=== PATIENT | female | born 1960 | race African-American/Black ===

== ENCOUNTER 2017-04-11 12:21 | Inpatient (IN) | payer MEDICARE, OTHER ==
[~2017-04-11] VITALS: Ht 170.2 cm; Wt 89.3 kg
[2017-04-11] MEDS ORDERED: SODIUM CHLORIDE 0.9% 1,000 ML IV ONE ×2 (12:39)
[2017-04-11 13:28] LABS: Basophils # (auto) 0 uL; Basophils % (auto) 0.4 % (0.0-2.0); Eosinophils # (auto) 0.1 uL; Eosinophils % (auto) 2.1 % (0.0-7.0); Hemoglobin 13.8 g/dL (12.2-16.2); Lymphocytes # (auto) 1.7 uL; Lymphocytes % (auto) 23.5 % (10.0-50.0); Mean Corpuscular Hemoglobin 30.8 pg (28.0-32.0); Mean Corpuscular Hgb Conc. 33.6 g/dL (32.0-36.0); Mean Corpuscular Volume 91.5 fL (80.0-100.0); Monocytes # (auto) 1.2 uL; Neutrophils # (auto) 4.1 uL; Nucleated Red Blood Cells % 0.1 %; Platelet Count (auto) 290 10^3/uL (140-450); Red Blood Cells 4.48 10^6/uL (4.0-5.20); White Blood Cell 7.2 10^3/uL (4.4-10.8)
[2017-04-11 13:34] LABS: Partial Thromboplastin Time 21.2 sec (22.64-33.71); Prothrombin Time 10.9 sec (9.37-12.3)
[2017-04-11 13:35] LABS: Alanine Aminotransferase 28 U/L (13-56); Albumin 3.6 g/dL (3.4-5.0); Anion Gap 10 (5-15); Aspartate Aminotransferase 37 U/L (15-37); BUN/Creatinine Ratio 8.9; Blood Urea Nitrogen 8 mg/dL (7-18); Calcium 9.2 mg/dL (8.5-10.1); Carbon Dioxide 26 mmol/L (21-32); Chloride 103 mmol/L (98-107); GFR African American 83 mL/min; GFR Non-African American 69 mL/min; Glucose 92 mg/dL (74-106); Sodium 139 mmol/L (136-145)
[2017-04-11 13:36] LABS: Lactic Acid w/Reflex 2.9 mmol/L (0.4-2.0)
[2017-04-11 13:39] LABS: Alkaline Phosphatase 116 U/L (45-117); Bilirubin, Total 0.3 mg/dL (0.2-1.0); Total Protein 8.3 g/dL (6.4-8.2)
[2017-04-11] MEDS ORDERED: PROMETHAZINE HCL 25 MG/ML 1ML IV ONE (13:45)
[2017-04-11] MEDS ORDERED: NALBUPHINE HCL 10 MG/1ml INJECTION IV ONE (13:45)
[2017-04-11] MEDS ORDERED: TEMAZEPAM 15 MG CAP PO PRN (14:30)
[2017-04-11] MEDS ORDERED: HYDROcodone-ACET 5/325MG TAB PO PRN (14:30)
[2017-04-11] MEDS ORDERED: ALBUTEROL SULF 2.5 MG/0.5ML(0.5%) NEB SOLN NEB PRN (14:30)
[2017-04-11] MEDS ORDERED: MORPHINE SULFATE 4 MG/ML SYR/VIAL IV PRN ×2 (14:30)
[2017-04-11] MEDS ORDERED: ACETAMINOPHEN 500 MG TAB PO PRN (14:30)
[2017-04-11] MEDS ORDERED: PROMETHAZINE HCL 25 MG/ML 1ML IV PRN (14:30)
[2017-04-11] MEDS ORDERED: VANCOMYCIN 1GM/250ML 250 ML IV ONE (14:30)
[2017-04-11] MEDS ORDERED: OSELTAMIVIR 75 MG CAP PO ONE (14:30)
[2017-04-11] MEDS ORDERED: NITROGLYCERIN 0.4 MG SL TAB SL PRN (14:30)
[2017-04-11] MEDS ORDERED: LORazepam 0.5 MG TAB PO PRN (14:30)
[2017-04-11] MEDS ORDERED: LACTULOSE 20Gm/30ML SOLN PO PRN (14:30)
[2017-04-11] MEDS ORDERED: methylPREDNISolone SOD SUCC 125 MG/2 ML VL IV ONE (15:00)
[2017-04-11] MEDS: SODIUM CHLORIDE 0.9% 1,000 ML IV SCH (15:15)
[2017-04-11 16:52] VITALS: BP 147/80
[2017-04-11] MEDS: CLINDAMYCIN 600MG IV 50 ML IV SCH ×2 (17:01→23:46)
[2017-04-11] MEDS: LEVOFLOXACIN 500MG 100 ML IV SCH (17:02)
[2017-04-11 17:28] VITALS: BP 147/80
[2017-04-11] MEDS: IPRATROPIUM BROM 0.5 MG/2.5ML INH SOL NEB SCH (19:12)
[2017-04-11] MEDS: ALBUTEROL SULF 2.5 MG/0.5ML(0.5%) NEB SOLN NEB SCH (19:12)
[2017-04-11 22:00] VITALS: BP 118/60
[2017-04-11] MEDS ORDERED: OSELTAMIVIR 75 MG CAP PO SCH (22:00)
[2017-04-11] MEDS: methylPREDNISolone SOD SUCC 40 MG/ML VL IV SCH (22:04)
[2017-04-12] MEDS: ALBUTEROL SULF 2.5 MG/0.5ML(0.5%) NEB SOLN NEB SCH ×4 (00:49→19:08)
[2017-04-12] MEDS: IPRATROPIUM BROM 0.5 MG/2.5ML INH SOL NEB SCH ×4 (00:49→19:08)
[2017-04-12 01:54] VITALS: BP 118/60
[2017-04-12 05:30] VITALS: BP 132/76
[2017-04-12] MEDS: SODIUM CHLORIDE 0.9% 1,000 ML IV SCH ×2 (06:12→15:54)
[2017-04-12 07:06] LABS: Basophils # (auto) 0 uL; Basophils % (auto) 0.1 % (0.0-2.0); Eosinophils # (auto) 0 uL; Hematocrit 38.8 % (36.0-46.0); Lymphocytes # (auto) 1.9 uL; Lymphocytes % (auto) 38.5 % (10.0-50.0); Mean Corpuscular Hemoglobin 30.8 pg (28.0-32.0); Mean Corpuscular Hgb Conc. 33.6 g/dL (32.0-36.0); Mean Corpuscular Volume 91.7 fL (80.0-100.0); Monocytes # (auto) 0.1 uL; Monocytes % (auto) 2.4 % (0.0-12.0); Neutrophils # (auto) 2.9 uL; Platelet Count (auto) 283 10^3/uL (140-450); Red Blood Cells 4.23 10^6/uL (4.0-5.20); Red Cell Distribution Width 12.9 % (11.8-14.3)
[2017-04-12 07:29] LABS: Cholesterol 139 mg/dL (< 200); HDL Cholesterol 54 mg/dL (40-59); LDL Cholesterol 89 mg/dL (< 100); Triglycerides 42 mg/dL (< 150)
[2017-04-12 08:00] VITALS: BP 122/69
[2017-04-12] MEDS: CLINDAMYCIN 600MG IV 50 ML IV SCH ×2 (08:02→15:54)
[2017-04-12 08:50] VITALS: BP 122/69
[2017-04-12] MEDS: methylPREDNISolone SOD SUCC 40 MG/ML VL IV SCH (10:25)
[2017-04-12] MEDS: LEVOFLOXACIN 500MG 100 ML IV SCH (10:25)
[2017-04-12 13:00] VITALS: BP 126/94
[2017-04-12 17:00] VITALS: BP 142/81
== END 2017-04-12 19:15 | disposition left against medical advice (07) | DRG 871 ==
LOC: ER 12:21 → TELE 12:22 → TELE-WESTW 15:30
PROVIDERS: ADMIT Internal Medicine; ATTEND Internal Medicine
DX: A41.9 Sepsis, unspecified organism (principal); J18.9 Pneumonia, unspecified organism; D86.9 Sarcoidosis, unspecified; Z88.5 Allergy status to narcotic agent; Z88.0 Allergy status to penicillin; R06.03 Acute respiratory distress
CPT/HCPCS: 36415; 71045; 71250; 80053; 80061; 83605; 84484; 85025; 85610; 85730; 87040; 87400; 94640; 96361; 96365; 96375; J1956; J3490

== ENCOUNTER 2019-08-13 12:17 | Inpatient (IN) | payer MEDICARE, OTHER ==
[~2019-08-13] VITALS: Ht 170.2 cm; Wt 86.2 kg
[2019-08-13] MEDS ORDERED: SODIUM CHLORIDE 0.9% 1,000 ML IV ONE ×2 (12:18)
[2019-08-13] MEDS ORDERED: AZITHROMYCIN 500MG/ 250ML 250 ML IV ONE (12:30)
[2019-08-13] MEDS ORDERED: ZINC SULFATE 220mg CAP or TAB PO ONE (12:30)
[2019-08-13] MEDS ORDERED: cefTRIAXone 1GM/50ML D5W 50 ML IV ONE (12:30)
[2019-08-13] MEDS ORDERED: ASCORBIC ACID 500 MG TAB PO ONE (13:15)
[2019-08-13 13:44] LABS: Basophils # (auto) 0 10 ^3/uL (0-0.2); Basophils % (auto) 0.3 % (0.0-2.0); Eosinophils # (auto) 0 10 ^3/uL (0-0.8); Eosinophils % (auto) 0.1 % (0.0-7.0); Hematocrit 44.2 % (36.0-46.0); Hemoglobin 14.8 g/dL (12.2-16.2); Lymphocytes # (auto) 1.5 10 ^3/uL (0.4-5.4); Lymphocytes % (auto) 9.4 % (10.0-50.0); Mean Corpuscular Hemoglobin 31.2 pg (28.0-32.0); Mean Corpuscular Hgb Conc. 33.6 g/dL (32.0-36.0); Mean Corpuscular Volume 93.1 fL (80.0-100.0); Monocytes # (auto) 1.2 10 ^3/uL (0-1.3); Monocytes % (auto) 7.7 % (0.0-12.0); Neutrophils # (auto) 12.9 10 ^3/uL (1.6-8.6); Neutrophils % (auto) 82.5 % (37.0-80.0); Platelet Count (auto) 307 10^3/uL (140-450); Red Blood Cells 4.75 10^6/uL (4.0-5.20); Red Cell Distribution Width 13.2 % (11.8-14.3); White Blood Cell 15.6 10^3/uL (4.4-10.8)
[2019-08-13] MEDS ORDERED: ACETAMINOPHEN 500 MG TAB PO ONE (13:45)
[2019-08-13 13:49] VITALS: BP 152/85
[2019-08-13 13:55] LABS: Calcium 8.4 mg/dL (8.5-10.1); Chloride 104 mmol/L (98-107); Potassium 3.7 mmol/L (3.5-5.1); Sodium 134 mmol/L (136-145)
[2019-08-13 13:56] LABS: INR 1.07 (0.9-1.15); Partial Thromboplastin Time 28.2 sec (23.64-32.05)
[2019-08-13 14:03] LABS: Alanine Aminotransferase 51 U/L (13-56); Alkaline Phosphatase 164 U/L (45-117); Anion Gap 5 (5-15); Aspartate Aminotransferase 54 U/L (15-37); BUN/Creatinine Ratio 9.3; Bilirubin, Total 0.7 mg/dL (0.2-1.0); Blood Urea Nitrogen 10 mg/dL (7-18); Carbon Dioxide 25 mmol/L (21-32); GFR African American 68 mL/min; GFR Non-African American 56 mL/min; Glucose 107 mg/dL (74-106); Lactate Dehydrogenase 283 U/L (84-246); Total Protein 7.6 g/dL (6.4-8.2)
[2019-08-13] MEDS ORDERED: levoFLOXacin 500MG 100 ML IV ONE (14:30)
[2019-08-13] MEDS ORDERED: ACETAMINOPHEN 500 MG TAB PO PRN (14:30)
[2019-08-13] MEDS ORDERED: methylPREDNISolone SOD SUCC 40 MG/ML VL IV SCH (14:30)
[2019-08-13] MEDS ORDERED: TEMAZEPAM 15 MG CAP PO PRN (14:30)
[2019-08-13] MEDS ORDERED: LACTULOSE 20Gm/30ML SOLN PO PRN (14:30)
[2019-08-13] MEDS ORDERED: NITROGLYCERIN 0.4 MG SL TAB SL PRN (14:30)
[2019-08-13] MEDS ORDERED: PROMETHAZINE HCL 25 MG/ML 1ML IV PRN (14:30)
[2019-08-13] MEDS ORDERED: traMADol HCL 50 MG TAB PO PRN (14:30)
[2019-08-13] MEDS ORDERED: MORPHINE SULF INJ 2 MG/ML SYRINGE 1ML IV PRN (14:30)
[2019-08-13] MEDS ORDERED: ALBUTEROL SULF HFA 90MCG INH 200DOSE IN SCH (22:00)
[2019-08-13] MEDS ORDERED: FAMOTIDINE 20 MG TAB PO SCH (22:00)
[2019-08-13] MEDS ORDERED: CLINDAMYCIN 600MG IV 50 ML IV SCH (22:00)
[2019-08-14] MEDS ORDERED: ZINC SULFATE 220mg CAP or TAB PO SCH (10:00)
[2019-08-14] MEDS ORDERED: levoFLOXacin 500MG 100 ML IV SCH (10:00)
[2019-08-14] MEDS ORDERED: ASCORBIC ACID 1,000 MG TAB PO SCH (10:00)
[2019-08-14] MEDS ORDERED: ENOXAPARIN SOD 40 MG/0.4 ML SYRINGE SC SCH ×2 (10:00)
[2019-08-14] MEDS ORDERED: CHOLECALCIFEROL (VITD3) 1,000IU=25mCg TAB PO SCH (10:00)
== END 2019-08-13 19:00 | disposition left against medical advice (07) | DRG 196 ==
LOC: EDBD 12:17 → ER 12:17 → TELE 12:18
PROVIDERS: ADMIT Internal Medicine; ATTEND Internal Medicine
DX: D86.9 Sarcoidosis, unspecified (principal); J18.9 Pneumonia, unspecified organism; Z20.828 Contact with and (suspected) exposure to other viral communicable diseases; Z53.29 Procedure and treatment not carried out because of patient's decision for other reasons; Z88.5 Allergy status to narcotic agent; Z88.0 Allergy status to penicillin
CPT/HCPCS: 36415; 71045; 80053; 82728; 83605; 83615; 83735; 83880; 84484; 85025; 85610; 85730; 87040; 87070; 87804; 87880; G0378; J0696

== ENCOUNTER 2023-05-04 02:50 | Inpatient (IN) | payer MEDICARE, BC ==
[~2023-05-04] VITALS: Ht 170.2 cm; Wt 63.7 kg
[2023-05-04] VITALS (7 sets, daily range): BP systolic 125–141; BP diastolic 72–94; PULSE 87–112; RESP 18–55; TEMP 97.2; O2SAT 90–99
[2023-05-04 06:58] LABS: Hemoglobin 12.3 g/dL (12.2-16.2)
[2023-05-04 07:00] LABS: Hematocrit 37.3 % (36.0-46.0); Mean Corpuscular Hemoglobin 30.6 pg (28.0-32.0); Mean Corpuscular Hgb Conc. 32.9 g/dL (32.0-36.0); Mean Corpuscular Volume 92.9 fL (80.0-100.0); Red Blood Cells 4.02 10^6/uL (4.0-5.20); Red Cell Distribution Width 14.2 % (11.8-14.3)
[2023-05-04 07:03] LABS: White Blood Cell 37.7 10^3/uL (4.4-10.8)
[2023-05-04 07:05] LABS: Basophils % (manual) 0 (0.0-2.0); Blast Cells 0; Eosinophils % (manual) 0 (0-7); Metamyelocytes % 0; Myelocytes % 0; Promyelocytes % 0; Reactive Lymphocytes 0
[2023-05-04 07:17] LABS: Alanine Aminotransferase 38 U/L (7-40); Albumin 3.2 g/dL (3.2-4.8); Alkaline Phosphatase 248 U/L (46-116); Anion Gap 8 (5-15); Aspartate Aminotransferase 84 U/L (13-40); BUN/Creatinine Ratio 20.3 (10.0-20.0); Bilirubin, Total 0.4 mg/dL (0.2-1.0); Blood Urea Nitrogen 13 mg/dL (9-23); Calcium 9.5 mg/dL (8.5-10.1); Carbon Dioxide 25 mmol/L (20-30); Chloride 105 mmol/L (98-107); Glucose 65 mg/dL (74-106); Potassium 5.1 mmol/L (3.5-5.1); Sodium 138 mmol/L (136-145); Total Protein 7.8 g/dL (5.7-8.2)
[2023-05-04 08:13] LABS: Band Neutrophils % (manual) 5; Lymphocytes % (manual) 9 (10.0-50.0); Monocytes % (manual) 5 (0-12); Platelet Estimate Increased; RBC Morphology Normal
[2023-05-04 08:23] LABS: INR 1.14 (0.9-1.15); Prothrombin Time 11.9 sec (9.3-11.8)
[2023-05-04 08:33] LABS: Base Excess -4.6 mmol/L (-2.0-2.0)
[2023-05-04] MEDS: ASPirin-EC 325mg tab PO ONE (08:43)
[2023-05-04] MEDS: ENOXAPARIN SOD 80 MG/0.8ML SYRINGE SC ONE (08:43)
[2023-05-04] MEDS: levoFLOXacin 750MG 150 ML IV ONE (09:07)
[2023-05-04] MEDS: ALBUTEROL SULF 2.5 MG/0.5ML(0.5%) NEB SOLN NEB ONE (09:44)
[2023-05-04] MEDS: IPRATROPIUM BROM 0.5 MG/2.5ML INH SOL NEB ONE (09:44)
[2023-05-04 09:56] LABS: Urine Bacteria FEW /hpf (None Seen); Urine Blood 2+ /uL (Negative); Urine Clarity HAZY (Clear); Urine Color Yellow (Yellow); Urine Hyaline Cast FEW /lpf (0 - 2); Urine Mucus FEW (None Seen); Urine Protein, UAD 1+ (Negative); Urine Specific Gravity 1.015 (1.001-1.035); Urine Urobilinogen Normal (Negative); Urine WBC 17 /hpf (0 - 5)
[2023-05-04 10:30] LABS: COVID19 ANTIGEN SOFIA FIA NEGATIVE (NEGATIVE); Rapid Influenza A Negative (Negative); Rapid Influenza B Negative (Negative)
[2023-05-04] MEDS ORDERED: ONDANSETRON HCL 4 MG/2 ML VIAL IV PRN (11:15)
[2023-05-04] MEDS ORDERED: VANCOMYCIN PER PHARMACY 0 MG IV SCH (11:15)
[2023-05-04] MEDS ORDERED: HYDROmorphone HCL 2 MG/ML VL/or syr IV PRN (11:15)
[2023-05-04] MEDS: VANCOMYCIN 1GM/200ML 200 ML IV ONE (11:48)
[2023-05-04] MEDS: methylPREDNISolone SOD SUCC 125 MG/2 ML VL IV SCH (11:48)
[2023-05-04] MEDS: FUROSEMIDE 40 MG/4 ML VIAL IV SCH (11:48)
[2023-05-04] MEDS: HYDROcodone-ACET 5/325MG TAB PO PRN (11:57)
[2023-05-04] MEDS: IPRATROPIUM BROM 0.5 MG/2.5ML INH SOL NEB SCH (12:06)
[2023-05-04] MEDS: ALBUTEROL SULF 2.5 MG/0.5ML(0.5%) NEB SOLN NEB SCH (12:06)
[2023-05-04 12:09] LABS: Lactic Acid w/Reflex 4.7 mmol/L (0.4-2.0)
[2023-05-04] MEDS: LACTATED RINGER'S 500 ML IV ONE ×2 (12:18→15:51)
[2023-05-04] MEDS: SODIUM CHLOR 0.9% PF (SALINE LOCK) 10ML VIAL/SYR IV SCH (14:12)
[2023-05-04] MEDS: IOHEXOL 350 MG/ML 100ML IJ ONE (14:23)
[2023-05-04] MEDS: AZTREONAM 1GM INJ 1 GM in D5W 5% 50 ML IV SCH (14:48)
[2023-05-04] MEDS: MORPHINE SULFATE INJ 2 MG/ml SYRG IV ONE (15:45)
[2023-05-04 16:21] LABS: Hemoglobin 11.3 g/dL (12.2-16.2); Mean Corpuscular Volume 92.1 fL (80.0-100.0)
[2023-05-04 16:22] LABS: Base Excess -6.4 mmol/L (-2.0-2.0)
[2023-05-04 16:22] LABS: Hematocrit 34.2 % (36.0-46.0); Mean Corpuscular Hemoglobin 30.4 pg (28.0-32.0); Red Blood Cells 3.71 10^6/uL (4.0-5.20); Red Cell Distribution Width 14.3 % (11.8-14.3)
[2023-05-04 16:27] LABS: White Blood Cell 34.9 10^3/uL (4.4-10.8)
[2023-05-04 16:28] LABS: Basophils % (manual) 0 (0.0-2.0); Blast Cells 0; Eosinophils % (manual) 0 (0-7); Metamyelocytes % 0; Myelocytes % 0; Promyelocytes % 0; Reactive Lymphocytes 0
[2023-05-04 16:33] LABS: Anion Gap 14 (5-15); Carbon Dioxide 16 mmol/L (20-30); Chloride 106 mmol/L (98-107); Potassium 4.3 mmol/L (3.5-5.1); Sodium 136 mmol/L (136-145)
[2023-05-04 16:34] LABS: Calcium 8.6 mg/dL (8.7-10.4)
[2023-05-04 16:39] LABS: BUN/Creatinine Ratio 27.3 (10.0-20.0); Blood Urea Nitrogen 18 mg/dL (9-23); Glucose 85 mg/dL (74-106)
[2023-05-04 16:48] LABS: Lactic Acid w/Reflex 4.9 mmol/L (0.4-2.0)
[2023-05-04 16:56] LABS: Band Neutrophils % (manual) 7; Lymphocytes % (manual) 4 (10.0-50.0); Monocytes % (manual) 4 (0-12)
[2023-05-04 16:57] LABS: Platelet Estimate Increased; RBC Morphology Normal
[2023-05-04 17:55] LABS: Basophils # (auto) 0 10 ^3/uL (0-0.2); Basophils % (auto) 0.1 % (0.0-2.0); Eosinophils # (auto) 0 10 ^3/uL (0-0.8); Lymphocytes % (auto) 2.9 % (10.0-50.0); Red Cell Distribution Width 14.4 % (11.8-14.3)
[2023-05-04 17:56] LABS: Eosinophils % (auto) 0.1 % (0.0-7.0); Hemoglobin 10.9 g/dL (12.2-16.2); Mean Corpuscular Hemoglobin 30.8 pg (28.0-32.0); Mean Corpuscular Volume 93.4 fL (80.0-100.0); Monocytes # (auto) 1.1 10 ^3/uL (0-1.3); Monocytes % (auto) 3.1 % (0.0-12.0); Neutrophils # (auto) 33.3 10 ^3/uL (1.6-8.6); Neutrophils % (auto) 93.8 % (37.0-80.0); Red Blood Cells 3.53 10^6/uL (4.0-5.20)
[2023-05-04] MEDS: HEPARIN DRIP/D5W 100UNITS/ML 250 ML IV SCH (18:00)
[2023-05-04 18:10] LABS: INR 1.6 (0.9-1.15); Partial Thromboplastin Time 35.9 SEC (24.5-34.5); Prothrombin Time 16.3 sec (9.3-11.8)
[2023-05-04 18:16] LABS: White Blood Cell 35.4 10^3/uL (4.4-10.8)
[2023-05-04] MEDS ORDERED: AZTREONAM 1GM INJ 1 GM in D5W 5% 50 ML IV SCH (22:00)
[2023-05-04 23:13] LABS: Urine Bacteria NONE SEEN /hpf (None Seen); Urine Blood TRACE /uL (Negative); Urine Clarity Clear (Clear); Urine Color Colorless (Yellow); Urine Hyaline Cast FEW /lpf (0 - 2); Urine Protein, UAD Negative (Negative); Urine Specific Gravity 1.019 (1.001-1.035); Urine Urobilinogen Normal (Negative); Urine WBC 2 /hpf (0 - 5)
[2023-05-04] MEDS: VANCOMYCIN 1GM/200ML 200 ML IV SCH (23:36)
[2023-05-05] VITALS (19 sets, daily range): BP systolic 104–129; BP diastolic 72–89; PULSE 78–103; RESP 18–28; TEMP 97.5–98.1; O2SAT 93–100
[2023-05-05] MEDS ORDERED: ATEN25TA PO (01:20)
[2023-05-05] MEDS ORDERED: PRED20TA2 PO (01:20)
[2023-05-05] MEDS ORDERED: FLUT1AER3 INH (01:20)
[2023-05-05 01:24] LABS: INR 1.67 (0.9-1.15)
[2023-05-05 01:32] LABS: Partial Thromboplastin Time 76.9 SEC (24.5-34.5)
[2023-05-05] MEDS: HEPARIN DRIP/D5W 100UNITS/ML 250 ML IV SCH (01:34)
[2023-05-05 06:07] LABS: INR 1.56 (0.9-1.15); Partial Thromboplastin Time 64.1 SEC (24.5-34.5); Prothrombin Time 15.9 sec (9.3-11.8)
[2023-05-05] MEDS ORDERED: ENOXAPARIN SOD 40 MG/0.4 ML SYRINGE SC SCH (10:00)
[2023-05-05 12:54] LABS: INR 1.53 (0.9-1.15); Partial Thromboplastin Time 62.6 SEC (24.5-34.5); Prothrombin Time 15.6 sec (9.3-11.8)
[2023-05-05] MEDS: MEROPENEM 1GM IVPB 50 ML IV ONE (16:00)
[2023-05-05] MEDS: MICAFUNGIN SODIUM 100 MG in SODIUM CHL 0.9% 100 ML IV ONE (16:00)
[2023-05-05] MEDS ORDERED: SPIR25TA8 PO (16:51)
[2023-05-05] MEDS ORDERED: THEO400T13 PO (16:51)
[2023-05-05] MEDS ORDERED: HYDR-4798 PO (16:51)
[2023-05-05] MEDS: IODIXANOL 320MG/ML 100ML BTL IV ONE (16:56)
[2023-05-05] MEDS: LIDOCAINE 2%HCL (LOCAL ANESTH.) INJ 20ML MDV ONE (16:56)
[2023-05-05] MEDS: VERAPAMIL 2.5MG/ML INJ 2ML VIAL IV ONE (17:44)
[2023-05-05] MEDS: HEPARIN SODIUM (PORCINE) 5000 UNITS/ML 1ML VIAL ONE (17:44)
[2023-05-05] MEDS: ANGIOMAX 250 MG VIAL IV ONE (17:45)
[2023-05-05] MEDS: SODIUM CHL 0.9% 0 ML ONE (17:45)
[2023-05-05] MEDS: fentaNYL CITRATE 100 MCG/2 ML VL ONE (17:45)
[2023-05-05] MEDS: diphenhdrAMINE HCL 50 MG/1 ML VL ONE (17:46)
[2023-05-05] MEDS: FAMOTIDINE (10MG/ML) 2ML VL IV ONE (17:46)
[2023-05-05] MEDS: MIDAZOLAM HCL 2MG/2ML 2ml VIAL (1mg/ml) ONE (17:46)
[2023-05-05] MEDS: methylPREDNISolone SOD SUCC 125 MG/2 ML VL ONE (17:46)
[2023-05-05 20:48] LABS: Hemoglobin 10.4 g/dL (12.2-16.2)
[2023-05-05 20:51] LABS: Chloride 108 mmol/L (98-107); Hematocrit 31.8 % (36.0-46.0); Mean Corpuscular Hemoglobin 29.8 pg (28.0-32.0); Mean Corpuscular Hgb Conc. 32.8 g/dL (32.0-36.0); Potassium 3.1 mmol/L (3.5-5.1); Red Cell Distribution Width 14.1 % (11.8-14.3); Sodium 139 mmol/L (136-145)
[2023-05-05 20:52] LABS: Anion Gap 7 (5-15); Carbon Dioxide 24 mmol/L (20-30)
[2023-05-05 20:53] LABS: Calcium 8.3 mg/dL (8.7-10.4)
[2023-05-05 20:57] LABS: Glucose 112 mg/dL (74-106); INR 1.42 (0.9-1.15); Partial Thromboplastin Time 32.5 SEC (24.5-34.5); Prothrombin Time 14.6 sec (9.3-11.8)
[2023-05-05 20:58] LABS: BUN/Creatinine Ratio 28.1 (10.0-20.0); Blood Urea Nitrogen 16 mg/dL (9-23)
[2023-05-05 20:59] LABS: White Blood Cell 42.2 10^3/uL (4.4-10.8)
[2023-05-05 21:00] LABS: Albumin 2.9 g/dL (3.2-4.8); Basophils % (manual) 0 (0.0-2.0); Blast Cells 0; Eosinophils % (manual) 0 (0-7); Metamyelocytes % 0; Myelocytes % 0; Promyelocytes % 0; Reactive Lymphocytes 0
[2023-05-05 21:01] LABS: Bilirubin, Direct 0.3 mg/dL (<0.3); Bilirubin, Total 0.4 mg/dL (0.2-1.0); Total Protein 7.3 g/dL (5.7-8.2)
[2023-05-05 21:49] LABS: Band Neutrophils % (manual) 25; Lymphocytes % (manual) 2 (10.0-50.0); Monocytes % (manual) 3 (0-12); Platelet Estimate Increased; RBC Morphology Normal
[2023-05-05] MEDS: POTASSIUM EFFERVESENT TAB 25 MEQ PO ONE (22:44)
[2023-05-05] MEDS: MEROPENEM 1GM IVPB 50 ML IV SCH (22:49)
[2023-05-06] VITALS (27 sets, daily range): BP systolic 112–127; BP diastolic 73–84; PULSE 93–109; RESP 16–28; TEMP 97.3–98.2; O2SAT 93–100
[2023-05-06 06:36] LABS: Hematocrit 33.8 % (36.0-46.0); Hemoglobin 10.9 g/dL (12.2-16.2); Mean Corpuscular Hgb Conc. 32.4 g/dL (32.0-36.0); Mean Corpuscular Volume 92.8 fL (80.0-100.0); Red Blood Cells 3.64 10^6/uL (4.0-5.20); Red Cell Distribution Width 14.4 % (11.8-14.3)
[2023-05-06 06:48] LABS: Alanine Aminotransferase 110 U/L (7-40); Albumin 2.8 g/dL (3.2-4.8); Alkaline Phosphatase 227 U/L (46-116); Anion Gap 8 (5-15); Aspartate Aminotransferase 197 U/L (13-40); Bilirubin, Total 0.4 mg/dL (0.2-1.0); Blood Urea Nitrogen 14 mg/dL (9-23); Calcium 8.5 mg/dL (8.7-10.4); Carbon Dioxide 22 mmol/L (20-30); Chloride 107 mmol/L (98-107); Glucose 120 mg/dL (74-106); Magnesium 1.9 mg/dL (1.6-2.6); Potassium 3.8 mmol/L (3.5-5.1); Sodium 137 mmol/L (136-145)
[2023-05-06 06:59] LABS: Basophils % (manual) 0 (0.0-2.0); Blast Cells 0; Eosinophils % (manual) 0 (0-7); Metamyelocytes % 0; Myelocytes % 0; Promyelocytes % 0; Reactive Lymphocytes 0; White Blood Cell 41.2 10^3/uL (4.4-10.8)
[2023-05-06 07:43] LABS: Band Neutrophils % (manual) 2; Lymphocytes % (manual) 9 (10.0-50.0); Monocytes % (manual) 10 (0-12); Platelet Estimate Increased
[2023-05-06] MEDS: IPRATROPIUM BROM 0.5 MG/2.5ML INH SOL NEB PRN (10:11)
[2023-05-06] MEDS: ALBUTEROL SULF 2.5 MG/0.5ML(0.5%) NEB SOLN NEB PRN (10:11)
[2023-05-06] MEDS: MICAFUNGIN SODIUM 100 MG in SODIUM CHL 0.9% 100 ML IV SCH (10:34)
[2023-05-06 10:40] LABS: Lactic Acid w/Reflex 2.3 mmol/L (0.4-2.0)
[2023-05-06] MEDS: ACETAMINOPHEN 325 MG TAB PO PRN (14:13)
[2023-05-06] MEDS: guaiFENesin 200 MG/10 ML UD PO ONE (18:22)
[2023-05-06] MEDS: VANCOMYCIN 1GM/200ML 200 ML IV SCH (18:23)
[2023-05-06 21:26] LABS: Thyroid Stimulating Hormone 0.83 uIU/mL (0.55-4.78)
[2023-05-06 22:31] LABS: Erythrocyte Sedimentation Rate 91 mm/hr (0-20)
[2023-05-06] MEDS: ACETYLCYSTEINE 10 %(100MG/ML) SOL 4ML NEB SCH (23:51)
[2023-05-07] VITALS (19 sets, daily range): BP systolic 121–130; BP diastolic 80–94; PULSE 75–113; RESP 16–26; TEMP 96.7–98.4; O2SAT 94–100
[2023-05-07 07:53] LABS: Mean Corpuscular Volume 91.5 fL (80.0-100.0)
[2023-05-07 07:55] LABS: Hematocrit 32.2 % (36.0-46.0); Hemoglobin 10.6 g/dL (12.2-16.2); Mean Corpuscular Hemoglobin 30.2 pg (28.0-32.0); Red Blood Cells 3.52 10^6/uL (4.0-5.20); Red Cell Distribution Width 14.3 % (11.8-14.3)
[2023-05-07 08:01] LABS: White Blood Cell 34.5 10^3/uL (4.4-10.8)
[2023-05-07 08:02] LABS: Basophils % (manual) 0 (0.0-2.0); Blast Cells 0; Eosinophils % (manual) 0 (0-7); Metamyelocytes % 0; Myelocytes % 0; Promyelocytes % 0; Reactive Lymphocytes 0
[2023-05-07 08:15] LABS: Alanine Aminotransferase 85 U/L (7-40); Alkaline Phosphatase 166 U/L (46-116); Anion Gap 9 (5-15); Aspartate Aminotransferase 79 U/L (13-40); BUN/Creatinine Ratio 21.2 (10.0-20.0); Bilirubin, Total 0.5 mg/dL (0.2-1.0); Blood Urea Nitrogen 14 mg/dL (9-23); Calcium 8.7 mg/dL (8.7-10.4); Carbon Dioxide 25 mmol/L (20-30); Chloride 104 mmol/L (98-107); Glucose 110 mg/dL (74-106); Magnesium 1.7 mg/dL (1.6-2.6); Potassium 3.5 mmol/L (3.5-5.1); Sodium 138 mmol/L (136-145); Total Protein 7.2 g/dL (5.7-8.2)
[2023-05-07 08:31] LABS: Band Neutrophils % (manual) 4; Lymphocytes % (manual) 1 (10.0-50.0); Monocytes % (manual) 4 (0-12); Platelet Estimate Increased; RBC Morphology Normal
[2023-05-07] MEDS: LIDOCAINE VISCOUS 2% 15ML UD PO ONE (09:22)
[2023-05-07] MEDS: MIDAZOLAM HCL 2MG/2ML 2ml VIAL (1mg/ml) IV ONE (09:23)
[2023-05-07] MEDS: fentaNYL CITRATE 100 MCG/2 ML VL IV ONE (09:23)
[2023-05-07 17:06] LABS: QuantiFERON-TB Gold Plus Indeterminate (Negative)
[2023-05-07] MEDS: guaiFENesin 200 MG/10 ML UD PO PRN (22:15)
[2023-05-08] VITALS (19 sets, daily range): BP systolic 105–141; BP diastolic 56–88; PULSE 88–115; RESP 16–20; TEMP 97.2–98; O2SAT 90–100
[2023-05-08 04:06] LABS: Baso (Absolute) 0.1 x10E3/uL (0.0-0.2); Basos 0 % (Not Estab.); Eos 0 % (Not Estab.); Hematocrit 33.8 % (34.0-46.6); Hemoglobin 10.9 g/dL (11.1-15.9); Lymphs 3 % (Not Estab.); Lymphs (Absolute) 1.1 x10E3/uL (0.7-3.1); MCH 30.2 pg (26.6-33.0); MCHC 32.2 g/dL (31.5-35.7); MCV 94 fL (79-97); Monocytes 3 % (Not Estab.); Monocytes (Absolute) 1.1 x10E3/uL (0.1-0.9); Neutrophils 93 % (Not Estab.); Neutrophils (Absolute) 32.3 x10E3/uL (1.4-7.0); Nucleated Red Blood Cells 1 % (0 - 0); Platelets 594 x10E3/uL (150-450); RBC 3.61 x10E6/uL (3.77-5.28); RDW 12.6 % (11.7-15.4); WBC 35.1 x10E3/uL (3.4-10.8)
[2023-05-08 04:32] LABS: Basophils # (auto) 0.1 10 ^3/uL (0-0.2); Eosinophils # (auto) 0 10 ^3/uL (0-0.8); Hemoglobin 10.6 g/dL (12.2-16.2)
[2023-05-08 04:34] LABS: Basophils % (auto) 0.2 % (0.0-2.0); Hematocrit 32.8 % (36.0-46.0); Lymphocytes # (auto) 0.7 10 ^3/uL (0.4-5.4); Lymphocytes % (auto) 1.6 % (10.0-50.0); Mean Corpuscular Hemoglobin 29.7 pg (28.0-32.0); Mean Corpuscular Hgb Conc. 32.2 g/dL (32.0-36.0); Mean Corpuscular Volume 92.3 fL (80.0-100.0); Monocytes # (auto) 1.1 10 ^3/uL (0-1.3); Monocytes % (auto) 2.6 % (0.0-12.0); Neutrophils # (auto) 39.3 10 ^3/uL (1.6-8.6); Neutrophils % (auto) 95.6 % (37.0-80.0); Nucleated Red Blood Cells % 0.7 %; Red Blood Cells 3.56 10^6/uL (4.0-5.20); Red Cell Distribution Width 14.4 % (11.8-14.3)
[2023-05-08 04:59] LABS: White Blood Cell 41.1 10^3/uL (4.4-10.8)
[2023-05-08 05:03] LABS: Alanine Aminotransferase 71 U/L (7-40); Alkaline Phosphatase 170 U/L (46-116); Anion Gap 8 (5-15); BUN/Creatinine Ratio 33.8 (10.0-20.0); Blood Urea Nitrogen 22 mg/dL (9-23); Calcium 8.6 mg/dL (8.7-10.4); Carbon Dioxide 27 mmol/L (20-30); Chloride 105 mmol/L (98-107); Glucose 128 mg/dL (74-106); Magnesium 1.7 mg/dL (1.6-2.6); Potassium 3.9 mmol/L (3.5-5.1); Sodium 140 mmol/L (136-145)
[2023-05-08 05:04] LABS: Albumin 2.7 g/dL (3.2-4.8); Aspartate Aminotransferase 52 U/L (13-40)
[2023-05-08 05:05] LABS: Bilirubin, Total 0.4 mg/dL (0.2-1.0); Total Protein 6.5 g/dL (5.7-8.2)
[2023-05-08 08:06] LABS: AFP Serum Tumor Marker 4.4 ng/mL (0.0-9.2); Immunoglobulin A 375 mg/dL (87-352); Immunoglobulin G, Serum 2678 mg/dL (586-1602); Immunoglobulin M 108 mg/dL (26-217)
[2023-05-08] MEDS: VANCOMYCIN 1GM/200ML 200 ML IV SCH (18:51)
[2023-05-09] VITALS (19 sets, daily range): BP systolic 133–148; BP diastolic 79–98; PULSE 80–113; RESP 18–32; TEMP 97.6–98.8; O2SAT 90–100
[2023-05-09 06:10] LABS: Hematocrit 33.7 % (36.0-46.0); Hemoglobin 10.9 g/dL (12.2-16.2); Mean Corpuscular Hemoglobin 30.1 pg (28.0-32.0); Mean Corpuscular Hgb Conc. 32.4 g/dL (32.0-36.0); Mean Corpuscular Volume 92.9 fL (80.0-100.0); Red Blood Cells 3.63 10^6/uL (4.0-5.20); Red Cell Distribution Width 14.5 % (11.8-14.3)
[2023-05-09 06:15] LABS: Anion Gap 7 (5-15); Carbon Dioxide 29 mmol/L (20-30); Chloride 105 mmol/L (98-107); Potassium 3.3 mmol/L (3.5-5.1); Sodium 141 mmol/L (136-145)
[2023-05-09 06:17] LABS: Calcium 8.8 mg/dL (8.7-10.4)
[2023-05-09 06:20] LABS: INR 1.26 (0.9-1.15); Partial Thromboplastin Time 26.5 SEC (24.5-34.5)
[2023-05-09 06:21] LABS: BUN/Creatinine Ratio 35.5 (10.0-20.0); Blood Urea Nitrogen 22 mg/dL (9-23); Glucose 135 mg/dL (74-106)
[2023-05-09 06:22] LABS: Magnesium 2.1 mg/dL (1.6-2.6)
[2023-05-09 06:36] LABS: Basophils % (manual) 0 (0.0-2.0); Blast Cells 0; Eosinophils % (manual) 0 (0-7); Promyelocytes % 0; Reactive Lymphocytes 0
[2023-05-09 06:52] LABS: Band Neutrophils % (manual) 17; Lymphocytes % (manual) 2 (10.0-50.0); Metamyelocytes % 1; Monocytes % (manual) 3 (0-12); Myelocytes % 1; Platelet Estimate Increased; Smudge Cells 1 /100 WBC
[2023-05-09 09:06] LABS: % CD 4 Pos Lymph 45.1 % (30.8-58.5); % CD 8 Pos Lymph 23.2 % (12.0-35.5); Absolute CD 4 Helper 496 /uL (359-1519); CD4/CD8 Ratio 1.94 (0.92-3.72)
[2023-05-09] MEDS ORDERED: SODIUM CHLORIDE LOCK 10 ML ONE (09:32)
[2023-05-09] MEDS ORDERED: LIDOCAINE 2% JELLY 11ml (GLYDO) ONE (09:32)
[2023-05-09] MEDS ORDERED: LIDOCAINE 2%HCL (LOCAL ANESTH.) INJ 20ML MDV ONE (09:32)
[2023-05-09] MEDS ORDERED: EPINEPHrine HCL 1 MG/1 ML AMP ONE (09:33)
[2023-05-09] MEDS ORDERED: MIDAZOLAM HCL 5 MG/ML-1ML VIAL ONE (09:33)
[2023-05-09] MEDS ORDERED: GLYCOPYRROLATE 0.2 MG/ML 1ML VIAL ONE (09:33)
[2023-05-09] MEDS ORDERED: fentaNYL CITRATE 100 MCG/2 ML VL ONE (09:34)
[2023-05-09] MEDS ORDERED: NALOXONE HCL 0.4 MG/ML VIAL ONE (09:49)
[2023-05-09] MEDS ORDERED: FLUMAZENIL 0.1 MG/ML INJ 10ML MDV IV ONE (09:49)
[2023-05-09 10:07] LABS: Kappa Lite Chain Free Serum 59.1 mg/L (3.3-19.4)
[2023-05-09] MEDS: methylPREDNISolone SOD SUCC 125 MG/2 ML VL IV SCH (11:53)
[2023-05-09] MEDS: POTASSIUM CHL 20MEQ/100ML 100 ML IV ONE (11:54)
[2023-05-09] MEDS: DOCUSATE SOD 100 MG CAP PO ONE (14:30)
[2023-05-09] MEDS: DOCUSATE SOD 100 MG CAP PO SCH (21:54)
[2023-05-10] VITALS (18 sets, daily range): BP systolic 96–145; BP diastolic 68–104; PULSE 77–115; RESP 16–24; TEMP 97.2–98.2; O2SAT 94–100
[2023-05-10 03:06] LABS: Angiotensin-Converting Enzyme 29 U/L (14-82)
[2023-05-10 06:26] LABS: Basophils # (auto) 0 10 ^3/uL (0-0.2); Eosinophils # (auto) 0 10 ^3/uL (0-0.8); Nucleated Red Blood Cells % 0.1 %
[2023-05-10 06:33] LABS: Hemoglobin 11.7 g/dL (12.2-16.2); Lymphocytes # (auto) 0.8 10 ^3/uL (0.4-5.4); Lymphocytes % (auto) 1.7 % (10.0-50.0); Mean Corpuscular Hgb Conc. 31.7 g/dL (32.0-36.0); Mean Corpuscular Volume 94.6 fL (80.0-100.0); Monocytes # (auto) 0.9 10 ^3/uL (0-1.3); Monocytes % (auto) 1.9 % (0.0-12.0); Neutrophils # (auto) 46.1 10 ^3/uL (1.6-8.6); Neutrophils % (auto) 96.4 % (37.0-80.0); Red Blood Cells 3.91 10^6/uL (4.0-5.20); Red Cell Distribution Width 14.5 % (11.8-14.3)
[2023-05-10 06:35] LABS: Anion Gap 9 (5-15); Calcium 8.8 mg/dL (8.7-10.4); Carbon Dioxide 27 mmol/L (20-30); Chloride 103 mmol/L (98-107); Potassium 3.7 mmol/L (3.5-5.1); Sodium 139 mmol/L (136-145)
[2023-05-10 06:41] LABS: BUN/Creatinine Ratio 35.4 (10.0-20.0); Blood Urea Nitrogen 23 mg/dL (9-23); Glucose 121 mg/dL (74-106)
[2023-05-10 06:42] LABS: Magnesium 1.9 mg/dL (1.6-2.6)
[2023-05-10 06:43] LABS: White Blood Cell 47.8 10^3/uL (4.4-10.8)
[2023-05-10] MEDS ORDERED: LIDOCAINE 2% JELLY 11ml (GLYDO) ONE (09:05)
[2023-05-10] MEDS ORDERED: LIDOCAINE 2%HCL (LOCAL ANESTH.) INJ 20ML MDV ONE (09:06)
[2023-05-10] MEDS ORDERED: GLYCOPYRROLATE 0.2 MG/ML 1ML VIAL ONE (09:06)
[2023-05-10] MEDS ORDERED: EPINEPHrine HCL 1 MG/1 ML AMP ONE (09:06)
[2023-05-10] MEDS ORDERED: NALOXONE HCL 0.4 MG/ML VIAL ONE (09:07)
[2023-05-10] MEDS ORDERED: SODIUM CHLORIDE LOCK 10 ML ONE (09:08)
[2023-05-10] MEDS: fentaNYL CITRATE 100 MCG/2 ML VL ONE (11:30)
[2023-05-10] MEDS: MIDAZOLAM HCL 5 MG/ML-1ML VIAL ONE (11:30)
[2023-05-10] MEDS: FLUMAZENIL 0.1 MG/ML INJ 10ML MDV IV ONE (11:43)
[2023-05-10 12:07] LABS: Vitamin D 25-Hydroxy 18 ng/mL (.); Vitamin D-2 25-Hydroxy <1.0 ng/mL (.); Vitamin D-3 25-Hydroxy 18 ng/mL (.)
[2023-05-10] MEDS: ATENOLOL 25 MG TAB PO ONE (17:42)
[2023-05-11] VITALS (17 sets, daily range): BP systolic 130–152; BP diastolic 68–99; PULSE 74–101; RESP 16–20; TEMP 97.3–98.3; O2SAT 97–100
[2023-05-11 06:24] LABS: Hematocrit 36.2 % (36.0-46.0); Hemoglobin 11.7 g/dL (12.2-16.2); Mean Corpuscular Hemoglobin 29.8 pg (28.0-32.0); Mean Corpuscular Hgb Conc. 32.2 g/dL (32.0-36.0); Mean Corpuscular Volume 92.5 fL (80.0-100.0); Red Blood Cells 3.91 10^6/uL (4.0-5.20); Red Cell Distribution Width 14.5 % (11.8-14.3)
[2023-05-11 06:48] LABS: Basophils % (manual) 0 (0.0-2.0); Blast Cells 0; Eosinophils % (manual) 0 (0-7); Metamyelocytes % 0; Myelocytes % 0; Promyelocytes % 0; Reactive Lymphocytes 0; White Blood Cell 51.3 10^3/uL (4.4-10.8)
[2023-05-11 07:01] LABS: Alanine Aminotransferase 38 U/L (7-40); Albumin 2.9 g/dL (3.2-4.8); Alkaline Phosphatase 167 U/L (46-116); Anion Gap 7 (5-15); Aspartate Aminotransferase 33 U/L (13-40); BUN/Creatinine Ratio 46.2 (10.0-20.0); Bilirubin, Total 0.6 mg/dL (0.2-1.0); Blood Urea Nitrogen 30 mg/dL (9-23); Calcium 9.2 mg/dL (8.7-10.4); Carbon Dioxide 30 mmol/L (20-30); Chloride 103 mmol/L (98-107); Glucose 106 mg/dL (74-106); Potassium 3.7 mmol/L (3.5-5.1); Sodium 140 mmol/L (136-145); Total Protein 7.4 g/dL (5.7-8.2)
[2023-05-11 09:45] LABS: Band Neutrophils % (manual) 15; Lymphocytes % (manual) 3 (10.0-50.0); Monocytes % (manual) 1 (0-12)
[2023-05-11 09:46] LABS: Platelet Estimate Adequate
[2023-05-11] MEDS: ATENOLOL 25 MG TAB PO ONE (10:01)
[2023-05-11] MEDS: ENOXAPARIN SOD 40 MG/0.4 ML SYRINGE SC ONE (14:34)
[2023-05-11] MEDS: methylPREDNISolone SOD SUCC 40 MG/ML VL IV SCH (21:23)
[2023-05-12] VITALS (15 sets, daily range): BP systolic 138–150; BP diastolic 78–88; PULSE 74–103; RESP 18–20; TEMP 97.4–98.4; O2SAT 93–100
[2023-05-12] MEDS: VANCOMYCIN 750mg/150ml 150 ML IV SCH (05:18)
[2023-05-12 05:22] LABS: Hematocrit 35.4 % (36.0-46.0); Hemoglobin 11.3 g/dL (12.2-16.2); Mean Corpuscular Hgb Conc. 31.9 g/dL (32.0-36.0); Red Blood Cells 3.76 10^6/uL (4.0-5.20); Red Cell Distribution Width 14.3 % (11.8-14.3)
[2023-05-12 05:27] LABS: Calcium 8.7 mg/dL (8.7-10.4); Chloride 102 mmol/L (98-107); Potassium 3.6 mmol/L (3.5-5.1); Sodium 139 mmol/L (136-145)
[2023-05-12 05:28] LABS: Anion Gap 3 (5-15); Carbon Dioxide 34 mmol/L (20-30)
[2023-05-12 05:33] LABS: BUN/Creatinine Ratio 52.8 (10.0-20.0); Blood Urea Nitrogen 28 mg/dL (9-23); Glucose 104 mg/dL (74-106)
[2023-05-12 05:34] LABS: INR 1.26 (0.9-1.15); Partial Thromboplastin Time 29.2 SEC (24.5-34.5)
[2023-05-12 05:36] LABS: White Blood Cell 49.8 10^3/uL (4.4-10.8)
[2023-05-12 05:37] LABS: Basophils % (manual) 0 (0.0-2.0); Blast Cells 0; Reactive Lymphocytes 0
[2023-05-12 07:54] LABS: Platelet Estimate Adequate
[2023-05-12 08:05] LABS: Band Neutrophils % (manual) 10; Lymphocytes % (manual) 1 (10.0-50.0)
[2023-05-12] MEDS: ENOXAPARIN SOD 40 MG/0.4 ML SYRINGE SC SCH (09:46)
[2023-05-13] VITALS (14 sets, daily range): BP systolic 141–156; BP diastolic 88–109; PULSE 72–109; RESP 16–20; TEMP 97.5–98.4; O2SAT 93–100
[2023-05-13 05:27] LABS: Hemoglobin 11.3 g/dL (12.2-16.2); Red Cell Distribution Width 14.3 % (11.8-14.3)
[2023-05-13 05:34] LABS: Chloride 100 mmol/L (98-107); Hematocrit 34.8 % (36.0-46.0); Mean Corpuscular Hgb Conc. 32.5 g/dL (32.0-36.0); Mean Corpuscular Volume 92.5 fL (80.0-100.0); Potassium 3.3 mmol/L (3.5-5.1); Red Blood Cells 3.77 10^6/uL (4.0-5.20); Sodium 138 mmol/L (136-145)
[2023-05-13 05:35] LABS: Anion Gap 4 (5-15); Calcium 8.4 mg/dL (8.7-10.4); Carbon Dioxide 34 mmol/L (20-30)
[2023-05-13 05:38] LABS: INR 1.27 (0.9-1.15); Partial Thromboplastin Time 29.4 SEC (24.5-34.5); Prothrombin Time 13.1 sec (9.3-11.8)
[2023-05-13 05:40] LABS: Blood Urea Nitrogen 23 mg/dL (9-23); Glucose 145 mg/dL (74-106)
[2023-05-13 05:56] LABS: White Blood Cell 45.5 10^3/uL (4.4-10.8)
[2023-05-13 05:57] LABS: Basophils % (manual) 0 (0.0-2.0); Blast Cells 0; Eosinophils % (manual) 0 (0-7); Metamyelocytes % 0; Myelocytes % 0; Promyelocytes % 0; Reactive Lymphocytes 0
[2023-05-13 06:49] LABS: Band Neutrophils % (manual) 2; Large Platelets FEW; Lymphocytes % (manual) 2 (10.0-50.0); Monocytes % (manual) 1 (0-12); Platelet Estimate Adequate; RBC Morphology Normal
[2023-05-13] MEDS: LIDOCAINE 2%HCL (LOCAL ANESTH.) INJ 10ml MDV ONE ×2 (10:32)
[2023-05-13] MEDS: MIDAZOLAM HCL 2MG/2ML 2ml VIAL (1mg/ml) IV ONE (10:32)
[2023-05-13] MEDS: fentaNYL CITRATE 100 MCG/2 ML VL IV ONE (10:32)
[2023-05-13] MEDS: methylPREDNISolone SOD SUCC 40 MG/ML VL IV SCH (10:42)
[2023-05-13 12:37] LABS: % Iron Saturation 8.1 % (15-50)
[2023-05-13] MEDS: POTASSIUM EFFERVESENT TAB 25 MEQ PO ONE (14:55)
[2023-05-13] MEDS: CARVEDILOL 3.125 MG TAB PO ONE (15:10)
[2023-05-13] MEDS: CARVEDILOL 3.125 MG TAB PO SCH (22:04)
[2023-05-14] VITALS (16 sets, daily range): BP systolic 142–165; BP diastolic 86–99; PULSE 78–103; RESP 15–20; TEMP 97.3–99.1; O2SAT 93–100
[2023-05-14 06:14] LABS: Hematocrit 38.9 % (36.0-46.0); Hemoglobin 12.4 g/dL (12.2-16.2); Mean Corpuscular Hgb Conc. 31.9 g/dL (32.0-36.0)
[2023-05-14 06:16] LABS: Red Blood Cells 4.14 10^6/uL (4.0-5.20); Red Cell Distribution Width 14.6 % (11.8-14.3)
[2023-05-14 06:19] LABS: Basophils % (manual) 0 (0.0-2.0); Blast Cells 0; Chloride 98 mmol/L (98-107); Eosinophils % (manual) 0 (0-7); Metamyelocytes % 0; Myelocytes % 0; Potassium 4.5 mmol/L (3.5-5.1); Promyelocytes % 0; Reactive Lymphocytes 0; Sodium 136 mmol/L (136-145)
[2023-05-14 06:20] LABS: Anion Gap 3 (5-15); Carbon Dioxide 35 mmol/L (20-30)
[2023-05-14 06:21] LABS: Calcium 9.2 mg/dL (8.7-10.4)
[2023-05-14 06:25] LABS: Glucose 90 mg/dL (74-106)
[2023-05-14 06:26] LABS: Magnesium 2.2 mg/dL (1.6-2.6)
[2023-05-14 06:27] LABS: BUN/Creatinine Ratio 36.7 (10.0-20.0); Blood Urea Nitrogen 18 mg/dL (9-23)
[2023-05-14 07:12] LABS: Band Neutrophils % (manual) 15; Lymphocytes % (manual) 7 (10.0-50.0); Monocytes % (manual) 3 (0-12); Platelet Estimate Adequate
[2023-05-14] MEDS: SPIRONOLACTONE 25 MG TAB PO SCH (10:00)
[2023-05-14] MEDS: AZITHROMYCIN 500MG/ 250ML 250 ML IV ONE (13:04)
[2023-05-14] MEDS: VORICONAZOLE INJ 400 MG in D5W 5% 250 ML IV SCH (20:30)
[2023-05-15] VITALS (19 sets, daily range): BP systolic 131–164; BP diastolic 75–103; PULSE 73–94; RESP 16–20; TEMP 97.3–98.5; O2SAT 94–100
[2023-05-15 05:52] LABS: Hemoglobin 11.3 g/dL (12.2-16.2)
[2023-05-15 05:59] LABS: Hematocrit 34.6 % (36.0-46.0); Mean Corpuscular Hemoglobin 30.1 pg (28.0-32.0); Mean Corpuscular Hgb Conc. 32.8 g/dL (32.0-36.0); Mean Corpuscular Volume 91.8 fL (80.0-100.0); Red Blood Cells 3.76 10^6/uL (4.0-5.20); Red Cell Distribution Width 14.4 % (11.8-14.3)
[2023-05-15 06:06] LABS: White Blood Cell 33.6 10^3/uL (4.4-10.8)
[2023-05-15 06:07] LABS: Basophils % (manual) 0 (0.0-2.0); Blast Cells 0; Eosinophils % (manual) 0 (0-7); Metamyelocytes % 0; Myelocytes % 0; Promyelocytes % 0; Reactive Lymphocytes 0
[2023-05-15 06:09] LABS: Anion Gap 1 (5-15); Carbon Dioxide 37 mmol/L (20-30); Chloride 96 mmol/L (98-107); Potassium 3.6 mmol/L (3.5-5.1); Sodium 134 mmol/L (136-145)
[2023-05-15 06:10] LABS: Calcium 8.9 mg/dL (8.7-10.4)
[2023-05-15 06:15] LABS: Glucose 75 mg/dL (74-106); Magnesium 2.1 mg/dL (1.6-2.6)
[2023-05-15 06:29] LABS: Blood Urea Nitrogen 31 mg/dL (9-23)
[2023-05-15 06:59] LABS: Band Neutrophils % (manual) 3; Lymphocytes % (manual) 2 (10.0-50.0); Monocytes % (manual) 5 (0-12); Platelet Estimate Adequate; Stomatocytes Few
[2023-05-15] MEDS ORDERED: AZITHROMYCIN 500MG/ 250ML 250 ML IV SCH (10:00)
[2023-05-15] MEDS: cefTRIAXone 2GM/50ML D5W 50 ML IV SCH (13:59)
[2023-05-15] MEDS: MICAFUNGIN SODIUM 100 MG in SODIUM CHL 0.9% 100 ML IV ONE (14:57)
[2023-05-15] MEDS ORDERED: D5W 5% IV SCH (20:30)
[2023-05-15] MEDS ORDERED: VORICONAZOLE IV SCH (20:30)
[2023-05-15] MEDS: DOXYCYCLINE 100MG/250ML 250 ML IV SCH (22:46)
[2023-05-16] VITALS (18 sets, daily range): BP systolic 136–169; BP diastolic 81–106; PULSE 80–99; RESP 16–26; TEMP 97.4–98.1; O2SAT 96–100
[2023-05-16] MEDS: IPRATROPIUM BROM 0.5 MG/2.5ML INH SOL NEB PRN (03:06)
[2023-05-16] MEDS: ALBUTEROL SULF 2.5 MG/0.5ML(0.5%) NEB SOLN NEB PRN (03:06)
[2023-05-16 06:22] LABS: Chloride 95 mmol/L (98-107); Potassium 4.3 mmol/L (3.5-5.1); Sodium 133 mmol/L (136-145)
[2023-05-16 06:23] LABS: Anion Gap 5 (5-15); Calcium 8.8 mg/dL (8.7-10.4); Carbon Dioxide 33 mmol/L (20-30)
[2023-05-16 06:28] LABS: Blood Urea Nitrogen 36 mg/dL (9-23); Glucose 83 mg/dL (74-106)
[2023-05-16 06:29] LABS: Magnesium 1.9 mg/dL (1.6-2.6)
[2023-05-16] MEDS: MICAFUNGIN SODIUM 100 MG in SODIUM CHL 0.9% 100 ML IV SCH (10:09)
[2023-05-16 11:17] LABS: Hematocrit 35.8 % (36.0-46.0); Hemoglobin 11.6 g/dL (12.2-16.2)
[2023-05-16 11:19] LABS: Mean Corpuscular Hemoglobin 29.9 pg (28.0-32.0); Mean Corpuscular Hgb Conc. 32.3 g/dL (32.0-36.0); Mean Corpuscular Volume 92.5 fL (80.0-100.0); Red Blood Cells 3.87 10^6/uL (4.0-5.20); Red Cell Distribution Width 14.7 % (11.8-14.3)
[2023-05-16 11:23] LABS: Basophils % (manual) 0 (0.0-2.0); Blast Cells 0; Eosinophils % (manual) 0 (0-7); Metamyelocytes % 0; Myelocytes % 0; Promyelocytes % 0; Reactive Lymphocytes 0
[2023-05-16 11:35] LABS: Band Neutrophils % (manual) 13; Lymphocytes % (manual) 5 (10.0-50.0); Monocytes % (manual) 8 (0-12)
[2023-05-16 11:36] LABS: Platelet Estimate Adequate
[2023-05-17] VITALS (17 sets, daily range): BP systolic 134–156; BP diastolic 81–99; PULSE 68–85; RESP 16–22; TEMP 97.5–98.2; O2SAT 95–100
[2023-05-17 05:32] LABS: Hematocrit 32.4 % (36.0-46.0); Hemoglobin 10.6 g/dL (12.2-16.2); Mean Corpuscular Hgb Conc. 32.7 g/dL (32.0-36.0); Mean Corpuscular Volume 91.7 fL (80.0-100.0); Red Blood Cells 3.53 10^6/uL (4.0-5.20); Red Cell Distribution Width 14.7 % (11.8-14.3); White Blood Cell 28.9 10^3/uL (4.4-10.8)
[2023-05-17 05:44] LABS: Chloride 96 mmol/L (98-107); Potassium 3.4 mmol/L (3.5-5.1); Sodium 136 mmol/L (136-145)
[2023-05-17 05:45] LABS: Anion Gap 0 (5-15); Calcium 8.3 mg/dL (8.7-10.4); Carbon Dioxide 40 mmol/L (20-30)
[2023-05-17 05:50] LABS: BUN/Creatinine Ratio 67.9 (10.0-20.0); Blood Urea Nitrogen 38 mg/dL (9-23); Glucose 95 mg/dL (74-106)
[2023-05-17 06:03] LABS: Basophils % (manual) 0 (0.0-2.0); Blast Cells 0; Eosinophils % (manual) 0 (0-7); Myelocytes % 0; Promyelocytes % 0; Reactive Lymphocytes 0
[2023-05-17 08:02] LABS: Anisocytosis Slight; Band Neutrophils % (manual) 12; Lymphocytes % (manual) 3 (10.0-50.0); Metamyelocytes % 1; Monocytes % (manual) 3 (0-12); Platelet Estimate Adequate
[2023-05-17] MEDS: POTASSIUM EFFERVESENT TAB 25 MEQ PO ONE (10:21)
[2023-05-18] VITALS (14 sets, daily range): BP systolic 129–163; BP diastolic 84–103; PULSE 73–92; RESP 14–21; TEMP 97.1–98.1; O2SAT 90–100
[2023-05-18 06:31] LABS: Hematocrit 34.4 % (36.0-46.0); Mean Corpuscular Hemoglobin 29.7 pg (28.0-32.0); Mean Corpuscular Hgb Conc. 32.1 g/dL (32.0-36.0); Mean Corpuscular Volume 92.5 fL (80.0-100.0); Red Blood Cells 3.72 10^6/uL (4.0-5.20); Red Cell Distribution Width 14.6 % (11.8-14.3); White Blood Cell 28.8 10^3/uL (4.4-10.8)
[2023-05-18 06:33] LABS: Chloride 93 mmol/L (98-107); Potassium 3.9 mmol/L (3.5-5.1); Sodium 135 mmol/L (136-145)
[2023-05-18 06:34] LABS: Anion Gap 4 (5-15); Calcium 9.2 mg/dL (8.7-10.4); Carbon Dioxide 38 mmol/L (20-30)
[2023-05-18 06:39] LABS: BUN/Creatinine Ratio 53.6 (10.0-20.0); Blood Urea Nitrogen 30 mg/dL (9-23); Glucose 88 mg/dL (74-106); Magnesium 2.1 mg/dL (1.6-2.6)
[2023-05-18 06:40] LABS: Basophils % (manual) 0 (0.0-2.0); Blast Cells 0; Eosinophils % (manual) 0 (0-7); Metamyelocytes % 0; Myelocytes % 0; Promyelocytes % 0
[2023-05-18 07:40] LABS: Band Neutrophils % (manual) 9; Lymphocytes % (manual) 3 (10.0-50.0); Monocytes % (manual) 2 (0-12); Reactive Lymphocytes 1
[2023-05-18 07:41] LABS: Anisocytosis Slight; Platelet Estimate Adequate
[2023-05-18] MEDS ORDERED: hydrALAZINE HCL 10 MG TAB PO PRN (14:15)
[2023-05-18] MEDS: SPIRONOLACTONE 25 MG TAB PO SCH (15:26)
[2023-05-18] MEDS: CARVEDILOL 3.125 MG TAB PO SCH (15:27)
[2023-05-18 16:18] LABS: Coccidioides CF Antibody <1:2 (<1:2)
[2023-05-18] MEDS: IPRATROPIUM BROM 0.5 MG/2.5ML INH SOL NEB SCH (18:30)
[2023-05-18] MEDS: ALBUTEROL SULF 2.5 MG/0.5ML(0.5%) NEB SOLN NEB SCH (18:30)
[2023-05-18] MEDS: SACUBITRIL-VALSARTAN 24mg/26mg TAB PO SCH (21:31)
[2023-05-18] MEDS: MELATONIN 5 MG TAB PO SCH (21:31)
[2023-05-19] VITALS (18 sets, daily range): BP systolic 100–133; BP diastolic 58–84; PULSE 63–83; RESP 16–24; TEMP 97.2–98.7; O2SAT 94–100
[2023-05-19 05:45] LABS: Hematocrit 33.5 % (36.0-46.0); Hemoglobin 10.8 g/dL (12.2-16.2); Mean Corpuscular Hemoglobin 29.8 pg (28.0-32.0); Mean Corpuscular Hgb Conc. 32.4 g/dL (32.0-36.0); Mean Corpuscular Volume 92.2 fL (80.0-100.0); Red Blood Cells 3.63 10^6/uL (4.0-5.20); Red Cell Distribution Width 14.7 % (11.8-14.3); White Blood Cell 20.7 10^3/uL (4.4-10.8)
[2023-05-19 05:47] LABS: Chloride 94 mmol/L (98-107); Potassium 3.8 mmol/L (3.5-5.1); Sodium 137 mmol/L (136-145)
[2023-05-19 05:48] LABS: Calcium 9.1 mg/dL (8.5-10.1)
[2023-05-19 05:52] LABS: Basophils % (manual) 0 (0.0-2.0); Blast Cells 0; Eosinophils % (manual) 0 (0-7); Metamyelocytes % 0; Myelocytes % 0; Promyelocytes % 0; Reactive Lymphocytes 0
[2023-05-19 05:53] LABS: BUN/Creatinine Ratio 56.9 (10.0-20.0); Glucose 113 mg/dL (74-106)
[2023-05-19 06:01] LABS: Anion Gap 2.99999 (5-15); Blood Urea Nitrogen 41 mg/dL (9-23)
[2023-05-19 06:02] LABS: Carbon Dioxide > 40 mmol/L (20-30)
[2023-05-19 06:24] LABS: Band Neutrophils % (manual) 17; Lymphocytes % (manual) 2 (10.0-50.0); Monocytes % (manual) 2 (0-12)
[2023-05-19 06:25] LABS: Platelet Estimate Adequate; Stomatocytes Few
[2023-05-19 09:20] LABS: Base Excess 13.8 mmol/L (-2.0-2.0)
[2023-05-19] MEDS: LORazepam 2MG/ML-1ML VIAL IV PRN (14:13)
[2023-05-19] MEDS ORDERED: hydrALAZINE HCL 20 MG/ML VL IV PRN (14:30)
[2023-05-20] VITALS (14 sets, daily range): BP systolic 104–116; BP diastolic 68–76; PULSE 67–82; RESP 16–22; TEMP 97.3–98.4; O2SAT 90–100
[2023-05-20 05:53] LABS: Hematocrit 33.5 % (36.0-46.0); Hemoglobin 10.8 g/dL (12.2-16.2); Mean Corpuscular Hemoglobin 29.9 pg (28.0-32.0); Mean Corpuscular Hgb Conc. 32.3 g/dL (32.0-36.0); Mean Corpuscular Volume 92.3 fL (80.0-100.0); Red Blood Cells 3.63 10^6/uL (4.0-5.20); Red Cell Distribution Width 14.7 % (11.8-14.3); White Blood Cell 16.1 10^3/uL (4.4-10.8)
[2023-05-20 06:03] LABS: Basophils % (manual) 0 (0.0-2.0); Blast Cells 0; Eosinophils % (manual) 0 (0-7); Metamyelocytes % 0; Myelocytes % 0; Promyelocytes % 0; Reactive Lymphocytes 0
[2023-05-20 06:05] LABS: Anion Gap 2 (5-15); Calcium 9.3 mg/dL (8.7-10.4); Carbon Dioxide 40 mmol/L (20-30); Chloride 95 mmol/L (98-107); Potassium 3.8 mmol/L (3.5-5.1); Sodium 137 mmol/L (136-145)
[2023-05-20 06:11] LABS: BUN/Creatinine Ratio 54.7 (10.0-20.0); Blood Urea Nitrogen 41 mg/dL (9-23); Glucose 86 mg/dL (74-106); Magnesium 2.1 mg/dL (1.6-2.6)
[2023-05-20 08:00] LABS: Band Neutrophils % (manual) 5; Lymphocytes % (manual) 4 (10.0-50.0); Monocytes % (manual) 1 (0-12); Platelet Estimate Adequate
[2023-05-20 08:01] LABS: RBC Morphology Normal
[2023-05-20 08:14] LABS: Base Excess 15.5 mmol/L (-2.0-2.0)
[2023-05-20] MEDS: FUROSEMIDE 40 MG/4 ML VIAL IV SCH (09:13)
[2023-05-20] MEDS: acetaZOLAMIDE SODIUM 500 MG VL IV ONE (11:15)
[2023-05-21] VITALS (17 sets, daily range): BP systolic 105–125; BP diastolic 68–74; PULSE 72–100; RESP 16–25; TEMP 97.3–98.4; O2SAT 86–100
[2023-05-21 05:30] LABS: Basophils # (auto) 0 10 ^3/uL (0-0.2); Basophils % (auto) 0.1 % (0.0-2.0); Eosinophils # (auto) 0.1 10 ^3/uL (0-0.8); Eosinophils % (auto) 0.5 % (0.0-7.0); Hematocrit 36.4 % (36.0-46.0); Hemoglobin 11.4 g/dL (12.2-16.2); Lymphocytes # (auto) 0.5 10 ^3/uL (0.4-5.4); Lymphocytes % (auto) 4.1 % (10.0-50.0); Mean Corpuscular Hemoglobin 29.7 pg (28.0-32.0); Mean Corpuscular Hgb Conc. 31.3 g/dL (32.0-36.0); Mean Corpuscular Volume 94.7 fL (80.0-100.0); Monocytes # (auto) 0.4 10 ^3/uL (0-1.3); Monocytes % (auto) 3.5 % (0.0-12.0); Neutrophils # (auto) 10.8 10 ^3/uL (1.6-8.6); Neutrophils % (auto) 91.8 % (37.0-80.0); Red Blood Cells 3.85 10^6/uL (4.0-5.20); Red Cell Distribution Width 15.3 % (11.8-14.3); White Blood Cell 11.8 10^3/uL (4.4-10.8)
[2023-05-21 05:36] LABS: Chloride 95 mmol/L (98-107); Potassium 3.8 mmol/L (3.5-5.1); Sodium 137 mmol/L (136-145)
[2023-05-21 05:37] LABS: Anion Gap 7 (5-15); Calcium 9.5 mg/dL (8.7-10.4); Carbon Dioxide 35 mmol/L (20-30)
[2023-05-21 05:42] LABS: BUN/Creatinine Ratio 47.5 (10.0-20.0); Blood Urea Nitrogen 38 mg/dL (9-23); Glucose 74 mg/dL (74-106)
[2023-05-21 05:43] LABS: Magnesium 2.3 mg/dL (1.6-2.6)
[2023-05-21] MEDS: acetaZOLAMIDE SODIUM 500 MG VL IV SCH (10:00)
[2023-05-22] VITALS (20 sets, daily range): BP systolic 96–121; BP diastolic 58–74; PULSE 83–100; RESP 16–25; TEMP 36.4; O2SAT 92–99
[2023-05-22 05:33] LABS: Hematocrit 33.2 % (36.0-46.0); Hemoglobin 10.8 g/dL (12.2-16.2); Mean Corpuscular Hemoglobin 30.2 pg (28.0-32.0); Mean Corpuscular Hgb Conc. 32.5 g/dL (32.0-36.0); Red Blood Cells 3.57 10^6/uL (4.0-5.20); Red Cell Distribution Width 14.8 % (11.8-14.3); White Blood Cell 9.7 10^3/uL (4.4-10.8)
[2023-05-22 05:44] LABS: Basophils % (manual) 0 (0.0-2.0); Blast Cells 0; Eosinophils % (manual) 0 (0-7); Metamyelocytes % 0; Myelocytes % 0; Promyelocytes % 0; Reactive Lymphocytes 0
[2023-05-22 05:49] LABS: Alanine Aminotransferase 10 U/L (7-40); Albumin 2.4 g/dL (3.2-4.8); Alkaline Phosphatase 204 U/L (46-116); Anion Gap 4 (5-15); Aspartate Aminotransferase 47 U/L (13-40); BUN/Creatinine Ratio 43.7 (10.0-20.0); Calcium 9.4 mg/dL (8.5-10.1); Carbon Dioxide 38 mmol/L (20-30); Chloride 97 mmol/L (98-107); Glucose 83 mg/dL (74-106); Potassium 4.2 mmol/L (3.5-5.1); Sodium 139 mmol/L (136-145)
[2023-05-22 05:50] LABS: Bilirubin, Total 0.5 mg/dL (0.2-1.0); Total Protein 7.6 g/dL (5.7-8.2)
[2023-05-22 05:56] LABS: Blood Urea Nitrogen 62 mg/dL (9-23)
[2023-05-22 06:15] LABS: Band Neutrophils % (manual) 58; Lymphocytes % (manual) 3 (10.0-50.0); Monocytes % (manual) 5 (0-12); Platelet Estimate Adequate
[2023-05-22 14:06] LABS: Aspergillus flavus Negative (Neg:<1:1)
[2023-05-22] MEDS: DOXYCYCLINE 100MG/250ML 250 ML IV SCH (21:16)
[2023-05-23] VITALS (10 sets, daily range): BP systolic 82–113; BP diastolic 48–65; PULSE 70–100; RESP 16–22; TEMP 97.6–98.3; O2SAT 91–100
[2023-05-23 14:13] LABS: Base Excess 8.4 mmol/L (-2.0-2.0)
== END 2023-05-23 18:33 | DRG 871 ==
LOC: EDBD 02:50 → ER 02:50 → TELE 11:12 → TELE-CENTR 21:35 → TELE-EAST 05-07 15:46
PROVIDERS: ADMIT Internal Medicine; ATTEND Internal Medicine
PROC: 4A023N7 Measurement of Cardiac Sampling and Pressure, Left Heart, Percutaneous Approach (ICD-10-PCS; principal; 2023-05-05)
PROC: B211YZZ Fluoroscopy of Multiple Coronary Arteries using Other Contrast (ICD-10-PCS; 2023-05-05)
PROC: B215YZZ Fluoroscopy of Left Heart using Other Contrast (ICD-10-PCS; 2023-05-05)
PROC: B24BZZ4 Ultrasonography of Heart with Aorta, Transesophageal (ICD-10-PCS; 2023-05-07)
PROC: 0B9M8ZZ Drainage of Bilateral Lungs, Via Natural or Artificial Opening Endoscopic (ICD-10-PCS; 2023-05-10)
PROC: 05H933Z Insertion of Infusion Device into Right Brachial Vein, Percutaneous Approach (ICD-10-PCS; 2023-05-10)
PROC: B54MZZA Ultrasonography of Right Upper Extremity Veins, Guidance (ICD-10-PCS; 2023-05-10)
PROC: 07DR3ZX Extraction of Iliac Bone Marrow, Percutaneous Approach, Diagnostic (ICD-10-PCS; 2023-05-13)
PROC: 05H933Z Insertion of Infusion Device into Right Brachial Vein, Percutaneous Approach (ICD-10-PCS; 2023-05-17)
PROC: B54MZZA Ultrasonography of Right Upper Extremity Veins, Guidance (ICD-10-PCS; 2023-05-17)
DX: A41.9 Sepsis, unspecified organism (principal); I21.4 Non-ST elevation (NSTEMI) myocardial infarction; I50.23 Acute on chronic systolic (congestive) heart failure; J15.69 Pneumonia due to other Gram-negative bacteria; J15.9 Unspecified bacterial pneumonia; J96.01 Acute respiratory failure with hypoxia; J44.0 Chronic obstructive pulmonary disease with (acute) lower respiratory infection; J44.1 Chronic obstructive pulmonary disease with (acute) exacerbation; J47.0 Bronchiectasis with acute lower respiratory infection; E87.4 Mixed disorder of acid-base balance; Z66 Do not resuscitate; D75.839 Thrombocytosis, unspecified; E78.5 Hyperlipidemia, unspecified; I11.0 Hypertensive heart disease with heart failure; R74.01 Elevation of levels of liver transaminase levels; I27.20 Pulmonary hypertension, unspecified; D86.0 Sarcoidosis of lung; E11.9 Type 2 diabetes mellitus without complications; D64.9 Anemia, unspecified; Z88.0 Allergy status to penicillin; Z88.5 Allergy status to narcotic agent
CPT/HCPCS: 10005; 36415; 36600; 71045; 71275; 72192; 76536; 77012; 80048; 80053; 80076; 80202; 81001; 82105; 82164; 82306; 82378; 82728; 82784; 82805; 83540; 83550; 83605; 83615; 83690; 83735; 83880; 83883; 84443; 84484; 85007; 85025; 85027; 85379; 85610; 85652; 85730; 86141; 86301; 86304; 86334; 86360; 86606; 86635; 86703; 86803; 86850; 86900; 86901; 87040; 87070; 87081; 87086; 87205; 87340; 87426; 87804; 93005; 93306; 93312; 93458; 94640; 94668; 96365; 96367; 96372; 96375; 97110; 97116; 97163; 97530; 99152; 99291; G0378; J0171; J1956; J2001; J2185; J2248; J2250; J3465; J3480; J3490; J7060; Q9967